=== PATIENT | male | born 1990 | race Two or more races ===

== ENCOUNTER 2025-08-18 08:54 | Emergency (ER) | payer SELFPAY ==
[~2025-08-18] VITALS: Ht 172.7 cm; Wt 74.1 kg
[2025-08-18 09:00] VITALS: BP 117/75; PULSE 110; RESP 20; TEMP 98; O2SAT 97
== END 2025-08-18 09:43 | disposition left against medical advice (07) ==
LOC: ER 08:54
DX: R68.89 Other general symptoms and signs (principal); Z53.21 Procedure and treatment not carried out due to patient leaving prior to being seen by health care provider; V29.99XA Rider (driver) (passenger) of other motorcycle injured in unspecified traffic accident, initial encounter; Y93.89 Activity, other specified; Y92.89 Other specified places as the place of occurrence of the external cause; Y99.8 Other external cause status